=== PATIENT | female | born 1965 | race African-American/Black ===

== ENCOUNTER 2016-11-27 16:56 | Emergency (ER) | payer OTHER ==
[~2016-11-27] VITALS: Ht 157.5 cm; Wt 103.5 kg
[~2016-11-27 16:56] MED LIST: ASPIR-LOW81 M1 PO; DESIPRAMINE HCL10 MG PO; FORTAMET1000 M1; FORTAMET1000 M1 PO; GABAPENTIN300 MG PO; GLIPIZIDE10 MG PO; GLIPIZIDE5 M1 PO; HUMALOG100 UNIT/2 SC; HYDROCHLOROTHIA25 MG PO; JANUVIA100 MG PO; LATUDA40 MG PO; LEVEMIR100 UNIT/2 SC; METOPROLOL SUC100 MG PO; METOPROLOL SUCC50 MG PO; MOTRIN600 MG PO; NORCO 5/3251 TABLET PO; PERPHENAZINE4 MG PO; PRAVACHOL80 MG PO; VIIBRYD20 MG PO; ZESTRIL,PRINIVI40 M1 PO
[2016-11-27] MEDS ORDERED: FLEXERIL10 MG PO (18:28)
[2016-11-27] MEDS ORDERED: NAPROSYN500 MG PO (18:28)
[2016-11-27] MEDS ORDERED: XYLOCAINE VISC100 ML MM (18:29)
[2016-11-27] MEDS ORDERED: AFRIN,GENASAL D15 ML BOTH NARES (18:29)
[2016-11-27 19:01] VITALS: BP 153/90
== END 2016-11-27 19:02 | disposition home or self-care (01) ==
LOC: EME 16:56
DX: J02.0 Streptococcal pharyngitis (principal); I10 Essential (primary) hypertension; E78.5 Hyperlipidemia, unspecified; E11.9 Type 2 diabetes mellitus without complications; Z87.442 Personal history of urinary calculi; Z72.0 Tobacco use
CPT/HCPCS: 71020; 87651 90; 99281; 99283; J0561

== ENCOUNTER 2016-12-01 17:39 | Emergency (ER) | payer OTHER ==
[~2016-12-01] VITALS: Ht 157.5 cm; Wt 107.6 kg
[~2016-12-01 17:39] MED LIST changes: +AFRIN,GENASAL D15 ML BOTH NARES; +FLEXERIL10 MG PO; +NAPROSYN500 MG PO; +XYLOCAINE VISC100 ML MM
[2016-12-01 18:27] LABS: EOSINOPHIL (%) 0.6 % (0-5); EOSINOPHIL COUNT 0.1 K/uL (0-0.3); IMMATURE GRANULOCYTE COUNT 0.1 K/uL; INSTRUMENT ABS NEUTROPHIL CT 8.4 K/uL; LYMPHOCYTE COUNT 3.1 K/uL (1.0-2.8); MCH 26.2 PG (29.0-34.0); MCHC 32.5 G/DL (30.0-36.0); MCV 80.7 FL (83-99); MONOCYTE (%) 11.4 % (3-12); MONOCYTE COUNT 1.5 K/uL (0-0.8); NEUTROPHIL (%) 63.3 % (45-76); NEUTROPHIL COUNT 8.4 K/uL (1.8-6.4); PLATELET COUNT 349 K/uL (156-360); RBC DIS.WIDTH-CV 14.2 % (11.8-14.6); RBC DIS.WIDTH-SD 41.9 % (39-53); RED BLOOD COUNT 4.46 M/uL (3.80-5.20); WHITE BLOOD COUNT 13.2 K/uL (4.1-10.2)
[2016-12-01 18:36] LABS: CHLORIDE 101 mEq/L (99-109); POTASSIUM 3.5 mEq/L (3.7-5.4); SODIUM 138 mEq/L (136-147)
[2016-12-01 18:38] LABS: GLUCOSE 207 mg/dL (70-99)
[2016-12-01 18:40] LABS: ANION GAP 12 MEQ/L (2-14); TOTAL BILIRUBIN 0.5 mg/dL (0.0-1.0)
[2016-12-01 18:42] LABS: ALKALINE PHOSPHATASE 76 IU/L (3-129); GFR ESTIMATE (CALCULATED) > 59 mL/min/
[2016-12-01 18:43] LABS: UREA NITROGEN (BUN) 7 mg/dL (9-23)
[2016-12-01 20:30] LABS: ADD MIUA? YES; BILIRUBIN NEGATIVE; BLOOD NEGATIVE; COLOR YELLOW ((YELLOW)); GLUCOSE (STRIP) 50; KETONES 20; LEUKOCYTES TRACE; NITRITE NEGATIVE; PROTEIN (STRIP) 30
[2016-12-01 20:42] LABS: BACTERIA RARE /HPF; EPITHELIAL CELLS RARE /HPF; MUCUS TRACE /LPF; RED BLOOD CELLS 0-5 /HPF (0-5); UCUL ADDED? NO; WHITE BLOOD CELLS 0-5 /HPF (0-5)
[2016-12-01 20:55] LABS: SPECIFIC GRAVITY 1.084 (1.000-1.030)
[2016-12-01] MEDS ORDERED: NORCO 5/3251 TABLET PO (22:14)
[2016-12-01] MEDS ORDERED: ZITHROMAX Z-PA250 MG PO (22:14)
[2016-12-01 22:41] VITALS: BP 134/76
== END 2016-12-01 22:51 | disposition home or self-care (01) ==
LOC: EME 17:39
PROVIDERS: Emergency Medicine
DX: R10.10 Upper abdominal pain, unspecified (principal); M25.512 Pain in left shoulder; M79.1 Myalgia; J90 Pleural effusion, not elsewhere classified; N28.89 Other specified disorders of kidney and ureter; R00.0 Tachycardia, unspecified; Z87.442 Personal history of urinary calculi; E11.9 Type 2 diabetes mellitus without complications; Z79.4 Long term (current) use of insulin; Z79.84 Long term (current) use of oral hypoglycemic drugs; I10 Essential (primary) hypertension; E78.5 Hyperlipidemia, unspecified; Z79.82 Long term (current) use of aspirin; F17.200 Nicotine dependence, unspecified, uncomplicated
CPT/HCPCS: 71020; 74177; 80053; 81003; 83605; 85025; 87040; 99281; 99284; J1885; J2543; J3010; J7030

== ENCOUNTER 2017-01-26 21:29 | Inpatient (IN) | payer OTHER ==
[~2017-01-26] VITALS: Ht 157.5 cm; Wt 99.7 kg
[~2017-01-26 21:29] MED LIST changes: -DOCUSATE SODIU100 MG PO; -ENDOCET 5-3251 EACH PO; -LISINOPRIL20 MG PO
[2017-01-27 07:05] VITALS: BP 147/75
[2017-01-27 07:37] LABS: POINT-OF-CARE METER ID UU14174212
[2017-01-27 10:23] LABS: POINT-OF-CARE METER ID UU13113655; POINT-OF-CARE USER ID ENVKLS06
[2017-01-27] MEDS ORDERED: ENDOCET 5-3251 EACH PO (12:04)
[2017-01-27] MEDS ORDERED: LISINOPRIL20 MG PO (12:04)
[2017-01-27] MEDS ORDERED: DOCUSATE SODIU100 MG PO (12:04)
[2017-01-27 12:10] LABS: POINT-OF-CARE METER ID UU13113675
[2017-01-27 14:15] LABS: HEMATOCRIT 39.2 % (36.0-46.0); MCH 26.7 PG (29.0-34.0); MCHC 31.9 G/DL (30.0-36.0); MCV 83.8 FL (83-99); MEAN PLAT.VOLUME 9.8 uM^3 (9.5-12.4); PLATELET COUNT 317 K/uL (156-360); RBC DIS.WIDTH-CV 15.8 % (11.8-14.6); RBC DIS.WIDTH-SD 48.1 % (39-53); RED BLOOD COUNT 4.68 M/uL (3.80-5.20); WHITE BLOOD COUNT 13.8 K/uL (4.1-10.2)
[2017-01-27 14:21] VITALS: BP 165/84
[2017-01-27 14:37] LABS: ANION GAP 11 MEQ/L (2-14); CHLORIDE 102 MEQ/L (99-109); GFR ESTIMATE (CALCULATED) > 59 mL/min/; GLUCOSE 278 mg/dL (70-99); POTASSIUM 4.4 MEQ/L (3.7-5.4); SAMPLE HEMOLYSIS CHECK 0; SAMPLE ICTERIC CHECK 0; SAMPLE LIPEMIA CHECK 0; SODIUM 135 MEQ/L (136-147); UREA NITROGEN (BUN) 9 mg/dL (9-23)
[2017-01-27 15:20] VITALS: BP 158/83
[2017-01-28] VITALS: BP 123/69
[2017-01-28 07:03] LABS: HEMATOCRIT 35.7 % (36.0-46.0); MCH 26.5 PG (29.0-34.0); MCHC 32.2 G/DL (30.0-36.0); MCV 82.3 FL (83-99); MEAN PLAT.VOLUME 9.7 uM^3 (9.5-12.4); PLATELET COUNT 294 K/uL (156-360); RBC DIS.WIDTH-CV 15.2 % (11.8-14.6); RED BLOOD COUNT 4.34 M/uL (3.80-5.20); WHITE BLOOD COUNT 8.9 K/uL (4.1-10.2)
[2017-01-28 07:23] LABS: ANION GAP 7 MEQ/L (2-14); CHLORIDE 102 MEQ/L (99-109); GFR ESTIMATE (CALCULATED) > 59 mL/min/; GLUCOSE 176 mg/dL (70-99); SAMPLE HEMOLYSIS CHECK 0; SAMPLE ICTERIC CHECK 0; SAMPLE LIPEMIA CHECK 0; SODIUM 138 MEQ/L (136-147); UREA NITROGEN (BUN) 8 mg/dL (9-23)
[2017-01-28 07:56] VITALS: BP 135/80
[2017-01-28 11:36] LABS: POINT-OF-CARE METER ID UU13113725
[2017-01-28 15:30] VITALS: BP 130/77
[2017-01-28 23:48] VITALS: BP 123/68
[2017-01-29 06:20] LABS: POINT-OF-CARE METER ID UU13113725
[2017-01-29 07:45] VITALS: BP 170/84
[2017-01-29 11:56] LABS: POINT-OF-CARE METER ID UU13113725
[2017-01-29 15:27] VITALS: BP 158/79
[2017-01-29 16:25] LABS: POINT-OF-CARE METER ID UU13113725
[2017-01-29 21:01] LABS: POINT-OF-CARE METER ID UU13113725
[2017-01-29 22:31] VITALS: BP 132/62
[2017-01-30 06:04] LABS: POINT-OF-CARE METER ID UU13113725
[2017-01-30 07:24] VITALS: BP 170/82
[2017-01-30 11:39] LABS: POINT-OF-CARE METER ID UU13113725
[2017-01-30 15:58] VITALS: BP 138/79
[2017-01-30 16:21] LABS: POINT-OF-CARE METER ID UU13113725
[2017-01-30 20:59] LABS: POINT-OF-CARE METER ID UU13113725
[2017-01-30 22:22] VITALS: BP 123/59
[2017-01-31 05:54] LABS: POINT-OF-CARE METER ID UU13113725
[2017-01-31 07:49] VITALS: BP 137/85
== END 2017-01-31 11:06 | disposition home or self-care (01) | DRG 657 ==
LOC: ENRESERV 21:29 → 5EAST 01-27 06:42 → 2SOUTH 01-27 06:42 → ENRESERV 01-27 11:42 → 5EAST 01-27 14:15
PROVIDERS: Urology
DX: C64.1 Malignant neoplasm of right kidney, except renal pelvis (principal); K66.0 Peritoneal adhesions (postprocedural) (postinfection); E11.9 Type 2 diabetes mellitus without complications; E78.5 Hyperlipidemia, unspecified; I10 Essential (primary) hypertension; E66.9 Obesity, unspecified; Z68.41 Body mass index [BMI] 40.0-44.9, adult; F31.9 Bipolar disorder, unspecified; Z87.442 Personal history of urinary calculi; Z87.891 Personal history of nicotine dependence; Z83.3 Family history of diabetes mellitus; Z82.49 Family history of ischemic heart disease and other diseases of the circulatory system
CPT/HCPCS: 80048; 82948; 85027; 86850; 86900; 86901; 88307; 93000; 94799; J0131; J0690; J1100; J1170; J1644; J1815; J1885; J2250; J2405; J3010; J7120; S0020

== ENCOUNTER → 2017-01-26 | Outpatient (CLI) | payer OTHER ==
[~2017-01-26] MED LIST changes: +DOCUSATE SODIU100 MG PO; +ENDOCET 5-3251 EACH PO; +LISINOPRIL20 MG PO; +ZITHROMAX Z-PA250 MG PO
== END | disposition home or self-care (01) ==
LOC: CDC 11:14
DX: N28.89 Other specified disorders of kidney and ureter (principal)
CPT/HCPCS: 93000

== ENCOUNTER 2018-01-01 15:07 | Emergency (ER) | payer OTHER ==
[~2018-01-01] VITALS: Ht 160 cm; Wt 97.4 kg
[~2018-01-01 15:07] MED LIST changes: +DOCUSATE SODIU100 MG PO; +ENDOCET 5-3251 EACH PO; +LISINOPRIL20 MG PO
[2018-01-01 15:38] LABS: HEMATOCRIT 38.1 % (36.0-46.0); HEMOGLOBIN 12.6 G/DL (11.9-15.5); MCH 27.6 PG (29.0-34.0); MCHC 33.1 G/DL (30.0-36.0); MCV 83.6 FL (83-99); PLATELET COUNT 305 K/uL (156-360); RBC DIS.WIDTH-CV 14.9 % (11.8-14.6); RBC DIS.WIDTH-SD 45.4 % (39-53); RED BLOOD COUNT 4.56 M/uL (3.80-5.20); WHITE BLOOD COUNT 7.2 K/uL (4.1-10.2)
[2018-01-01 15:48] LABS: ALBUMIN 4.4 g/dL (3.2-4.8)
[2018-01-01 15:49] LABS: CHLORIDE 101 mEq/L (99-109); POTASSIUM 3.8 mEq/L (3.7-5.4); SODIUM 139 mEq/L (136-147)
[2018-01-01 15:51] LABS: GLUCOSE 149 mg/dL (70-99)
[2018-01-01 15:53] LABS: TOTAL BILIRUBIN 0.4 mg/dL (0.0-1.0)
[2018-01-01 15:54] LABS: ALKALINE PHOSPHATASE 56 IU/L (3-129)
[2018-01-01 15:55] LABS: CREATININE 1.5 mg/dL (0.6-1.3); GFR ESTIMATE (CALCULATED) 47 mL/min/
[2018-01-01 15:56] LABS: AST (GOT) 18 IU/L (2-34); UREA NITROGEN (BUN) 13 mg/dL (9-23)
[2018-01-01 15:58] LABS: ALT (GPT) 25 IU/L (3-49)
[2018-01-01 16:04] LABS: QUANTITATIVE HCG < 4.0 MIU/ML
[2018-01-01 16:37] LABS: LIPASE 133 U/L (1.0-51.0)
[2018-01-01 16:54] LABS: TROP-I INTERPRETATION NEGATIVE; TROPONIN-I < 0.01 ng/mL (0.0-0.30)
[2018-01-01 18:16] LABS: APPEARANCE CLEAR ((CLEAR)); BILIRUBIN NEGATIVE; BLOOD NEGATIVE; COLOR YELLOW ((YELLOW)); GLUCOSE (STRIP) NEGATIVE; KETONES NEGATIVE; LEUKOCYTES NEGATIVE; NITRITE NEGATIVE; PROTEIN (STRIP) 30; SPECIFIC GRAVITY 1.028 (1.000-1.030); UCUL ADDED? NO; UROBILINOGEN 0.2 MG/DL (0.2-1.0)
[2018-01-01 21:17] LABS: CHLORIDE 105 mEq/L (99-109); POTASSIUM 3.5 mEq/L (3.7-5.4); SODIUM 140 mEq/L (136-147)
[2018-01-01 21:23] LABS: CREATININE 1.2 mg/dL (0.6-1.3); GFR ESTIMATE (CALCULATED) > 59 mL/min/; UREA NITROGEN (BUN) 11 mg/dL (9-23)
[2018-01-01 21:28] LABS: GLUCOSE 110 mg/dL (70-99)
[2018-01-01 21:29] LABS: TROP-I INTERPRETATION NEGATIVE; TROPONIN-I < 0.01 ng/mL (0.0-0.30)
[2018-01-01] MEDS ORDERED: ZOFRAN ODT4 MG PO (22:28)
[2018-01-01 23:18] VITALS: BP 127/84
== END 2018-01-01 23:26 | disposition home or self-care (01) ==
LOC: EME 15:07 → RME 15:07
PROVIDERS: Physician Assistant Medical
DX: R11.2 Nausea with vomiting, unspecified (principal); E27.9 Disorder of adrenal gland, unspecified; Z85.528 Personal history of other malignant neoplasm of kidney; Z90.5 Acquired absence of kidney; I10 Essential (primary) hypertension; E11.9 Type 2 diabetes mellitus without complications; E78.5 Hyperlipidemia, unspecified; F32.9 Major depressive disorder, single episode, unspecified; Z87.442 Personal history of urinary calculi; Z87.891 Personal history of nicotine dependence; Z79.4 Long term (current) use of insulin; Z79.82 Long term (current) use of aspirin
CPT/HCPCS: 74176; 80048 91; 80053; 81003; 83690; 84484; 84702; 85027; 93005; 99281; 99285; J2405; J7030